=== PATIENT | male | born 1965 | race Two or more races ===

== ENCOUNTER 2021-12-12 09:13 | Day surgery (SDC) | payer OTHER ==
[~2021-12-12] VITALS: Ht 182.9 cm; Wt 104.3 kg
[~2021-12-12 09:13] MED LIST: FLUT1SPR5; IBUP400T22 PO; LEVO25TA6 PO; LORA-483 PO; MILKPOW XX; [UNRECOGNIZED DRUG - CODE] EX
[2021-12-12] MEDS ORDERED: ceFAZolin 1GM/50ML 100 ML IV ONE (09:26)
[2021-12-12] MEDS ORDERED: BUPIVACAINE 0.25% INJ 50ML VIAL ONE (11:20)
[2021-12-12] MEDS ORDERED: ONDANSETRON HCL 4 MG/2 ML VIAL ONE (11:24)
[2021-12-12] MEDS ORDERED: KETOROLAC TROMETH 30 MG/ML 1ML VIAL ONE (11:24)
[2021-12-12] MEDS ORDERED: MIDAZOLAM HCL 2MG/2ML 2ml VIAL (1mg/ml) ONE (11:24)
[2021-12-12] MEDS ORDERED: DexAMETHasone SOD PHOS 10MG/1ML VIAL INJ ONE (11:24)
[2021-12-12] MEDS ORDERED: GLYCOPYRROLATE 0.2 MG/ML 1ML VIAL ONE (11:24)
[2021-12-12] MEDS ORDERED: HYDROmorphone HCL 2 MG/ML VL/or syr ONE (11:24)
[2021-12-12] MEDS ORDERED: ePHEDrine SULFATE 50 MG/ML AMP ONE (11:24)
[2021-12-12] MEDS ORDERED: fentaNYL CITRATE 100 MCG/2 ML VL ONE (11:24)
[2021-12-12] MEDS ORDERED: LIDOCAINE 2% (LOCAL ANESTH.) PF 5ml SDV ONE (11:26)
[2021-12-12] MEDS ORDERED: HYDROmorphone HCL 2 MG/ML VL/or syr IV PRN (12:45)
[2021-12-12] MEDS ORDERED: ONDANSETRON HCL 4 MG/2 ML VIAL IV PRN (12:45)
[2021-12-12] MEDS ORDERED: HYDR1TAB97 PO (13:07)
[2021-12-12 13:40] VITALS: BP 176/108
== END 2021-12-12 13:40 | disposition home or self-care (01) ==
LOC: SUR 09:13
PROVIDERS: ATTEND Orthopaedic Surgery Sports Medicine
DX: S83.271A Complex tear of lateral meniscus, current injury, right knee, initial encounter (principal); M94.261 Chondromalacia, right knee; M17.11 Unilateral primary osteoarthritis, right knee; E03.9 Hypothyroidism, unspecified; Z88.5 Allergy status to narcotic agent; Z20.822 Contact with and (suspected) exposure to COVID-19; Z90.49 Acquired absence of other specified parts of digestive tract; X58.XXXA Exposure to other specified factors, initial encounter; Y93.89 Activity, other specified; Y92.89 Other specified places as the place of occurrence of the external cause; Y99.8 Other external cause status
CPT/HCPCS: 29882; C1713; C1776; J0690; J1100; J1170; J1885; J2001; J2250; J2405; J3010; J3490; U0003